=== PATIENT | female | born 1995 | race Caucasian/White ===

== ENCOUNTER 2020-03-10 00:55 | Emergency (ER) | payer OTHER, SELFPAY ==
[2020-03-10 00:59] VITALS: BP 151/92; PULSE 75; RESP 16; TEMP 36.8; O2SAT 99
--- NOTE | 2020-03-10 01:24 | XR_ITS ---
EXAMINATION: XR HAND, RIGHT CLINICAL INFORMATION: pain, injury COMPARISON: None TECHNIQUE: PA, lateral, and oblique views of the right hand. FINDINGS: There is a transverse fracture of the distal phalangeal tuft of the index finger with an associated skin laceration and surrounding gauze. This fracture is distracted by 3 mm . No radiodense foreign bodies. No visible fractures. No joint involvement. XR/XR hand RT min 3V IMPRESSION: Laceration at the tip of the index finger with a transverse fracture through the distal phalangeal tuft, distracted by 3 mm
[2020-03-10 02:22] VITALS: BP 151/92; PULSE 75; RESP 16; TEMP 36.8; O2SAT 99; BMI 37.9
--- NOTE | 2020-03-10 02:24 | ED.UPPEXIN ---
HPI - Extremity Injury (Upper) General Chief Complaint: Extremity Injury, Upper Stated Complaint: Finger inj Time Seen by Provider: 03/10/20 01:23 Source: patient Mode of arrival: ambulatory Limitations: no limitations History of Present Illness HPI narrative: at work closed R index finger in door resulting in wound and pain , tetanus UTD, R hand dominant, wears gel / acrylic nails complaint: injury to: right and finger (index) Onset (ago): minute(s) (just HEAD BAKER) Other Extremity Injury: right: fingers Other injuries: none Handedness: right Place: work Severity: moderate Relieving factors: none Exacerbating factors: none Context: direct blow (crushed in door) Associated symptoms: denies other symptoms Treatments prior to arrival: bandage Related Data Previous Rx's Medication Instructions Recorded doxycycline hyclate 100 mg PO BID 7 Days #14 cap 03/10/20 hydrocodone-acetaminophen 1 tab PO Q6H PRN #12 tab 03/10/20 Allergies Allergy/AdvReac Type Severity Reaction Status Date / Time Unable to Assess Allergy Unverified 03/10/20 01:24 Review of Systems Review of Systems: Constitutional : No Fever, No Chills ENT/Mouth : No Ear Pain, No Hoarseness, No sore throat Eyes: No Eye Pain, No Swelling, No Redness, No Foreign Body Cardiovascular : No Chest Pain, No SOB Respiratory : No Cough, No Dyspnea Gastrointestinal : No Nausea, No Vomiting, No Diarrhea, No abdominal Pain Genitourinary : No Dysuria, No Hematuria Musculoskeletal : positive joint pain, No Myalgias, No Joint Swelling Skin : pos Skin lacerations, No rash Neuro : No Weakness, No Numbness, No Loss of Consciousness, No Dizziness, No Headache All other systems reviewed and are negative [facility] Past Medical History Attestation statement: The following information was validated with the patient. Medical History Asthma Cholecystectomy planned Tonsillectomy planned Social History Social History (Updated 03/10/20 @ 03:08 by Mona Tejada DO) Smoking Status: Never smoker Advance Directives: No Advance Directives Information Provided: No Physical Exam Vital Signs: Vital Signs: Last Vital Signs Temp 98.3 F 03/10/20 02:22 Pulse 75 03/10/20 02:22 Resp 16 03/10/20 02:22 BP 151/92 H 03/10/20 02:22 Pulse Ox 99 03/10/20 02:22 Body Mass Index 37.9 Appearance: Alert. Oriented X3. No acute distress. Eyes: Pupils equal, round and reactive to light. ENT: Pharynx normal. Neck: Normal inspection. Neck supple. CVS: Normal heart rate and rhythm. Pulses normal. Respiratory: No respiratory distress. Breath sounds normal. Abdomen: Soft and nontender. Skin: Skin warm and dry. Normal skin color. Normal skin turgor. Extremities: No lower extremity edema. No calf ttp R index finger - nail is fractured and completely avulsed off, laceration noted on radial aspect of finger 1cm - distal NV intact, naild bed is bloody but no large laceration noted Neuro: Oriented X 3. No motor deficit. No sensory deficit. Procedures Laceration Laceration 1: Site: other (index finger) Side (If applicable): right Size (cm): 1 Description: linear Depth: simple, single layer Local Anesthetic: lidocaine 2% Amount of anesthesia used (mL): 3 Pre-repair: wound explored, irrigated extensively and wound margins revised (the nail itself is gel/acrylic and it was completely avulsed from the finger - nail bed no active bleeding noted the proximal nail fold had no obvious laceration) Skin layer closed with: nylon Size (cm): 5-0 Number of sutures: 2 Technique: simple, interrupted and other (the nail bed was covered with dermabond as I could not salvage the nail she had avulsed) MDM - Extremity Injury (Upper) MDM Narrative Medical decision making narrative: 24 yo female with crush injury to the R index finger with open fracture, NV intact, will need wound repair, PO antibiotics, the patient's nail could not be salvaged as a biologic dressing due to the nature of the injury to it and it is a false nail - I had to use dermabond to cover her nailbed, after repair will place in splint and refer to orthopedics. Discharge Plan Discharge Clinical Impression: Laceration, Avulsion of nail Phalanx, hand fracture, open Qualifiers: Encounter type: initial encounter Qualified Code(s): S62.609B - Fracture of unspecified phalanx of unspecified finger, initial encounter for open fracture Patient Disposition: Home, Self-Care Instructions: Laceration (ED), Finger Fracture (ED), Nail Avulsion (ED) Additional Instructions: return to ED for any worsening symptoms or concerns wear splint until released, no washing - dermabond to remain in place for 7 days, sutures out in 7 days Prescriptions: New doxycycline hyclate 100 mg capsule 100 mg PO BID 7 Days Qty: 14 RF: 0 hydrocodone-acetaminophen 5-325 mg tablet 1 tab PO Q6H PRN (Reason: pain) Qty: 12 RF: 0 Referrals: Uzma Poole PA-C [Physician Borough Coordinator] - 5 days Stand Alone Forms: Work/School Release
[2020-03-10] MEDS: Lidocaine HCl 2 % MPF 5 ML VIAL SUBCUT (02:53)
== END 2020-03-10 03:52 | disposition home or self-care (01) ==
LOC: HO.ED 03:18
PROVIDERS: Emergency Provider Emergency Medicine
DX: S62.609A Fracture of unspecified phalanx of unspecified finger, initial encounter for closed fracture (principal); M79.644 Pain in right finger(s); S61.330A Puncture wound without foreign body of right index finger with damage to nail, initial encounter; Y29.XXXA Contact with blunt object, undetermined intent, initial encounter; Y93.9 Activity, unspecified; Y92.89 Other specified places as the place of occurrence of the external cause; Y99.0 Civilian activity done for income or pay
CPT/HCPCS: 12001; 73130; 99283